=== PATIENT | male | born 1995 | race Caucasian/White ===

== ENCOUNTER 2018-03-06 15:04 | Emergency (ER) | payer OTHER, BC ==
--- NOTE | 2018-03-06 15:36 | EDM.PDOC ---
ED HPI GENERAL MEDICAL PROBLEM - General Chief Complaint: Lower Extremity Injury/Pain Stated Complaint: right knee pain Time Seen by Provider: 03/06/18 15:06 Source of Information: Reports: Patient History Limitations: Reports: No Limitations - History of Present Illness INITIAL COMMENTS - FREE TEXT/NARRATIVE: Patient comes in with complaints of right knee pain after twisting it while at work. He does have swelling and pain. He also states he heard and felt a pop. He has no other complaints and did not fall. Onset: Today, Sudden Duration: Getting Worse Location: Reports: Lower Extremity, Right Quality: Reports: Ache Severity: Moderate Improves with: Reports: None Worsens with: Reports: Movement Associated Symptoms: Reports: No Other Symptoms Right Knee Pain Score (Numeric/FACES): 2 - Related Data Allergies Allergy/AdvReac Type Severity Reaction Status Date / Time No Known Allergies Allergy Verified 03/06/18 15:28 Home Meds: Home Meds . [No Known Home Meds] 03/06/18 [History] Review of Systems - Review of Systems Review Of Systems: See Below Constitutional: Reports: No Symptoms Eyes: Reports: No Symptoms Ears: Reports: No Symptoms Nose: Reports: No Symptoms Mouth/Throat: Reports: No Symptoms Respiratory: Reports: No Symptoms Cardiovascular: Reports: No Symptoms GI/Abdominal: Reports: No Symptoms Genitourinary: Reports: No Symptoms Musculoskeletal: Reports: Other (right knee pain and swelling) Skin: Reports: No Symptoms Neurological: Reports: No Symptoms Psychiatric: Reports: No Symptoms ED EXAM, GENERAL - Physical Exam Exam: See Below Exam Limited By: No Limitations General Appearance: Alert, WD/WN, No Apparent Distress Eye Exam: Bilateral Eye: EOMI, PERRL Ears: Normal TMs Throat/Mouth: Normal Inspection, Normal Lips, Normal Teeth, Normal Gums, Normal Oropharynx, Normal Voice, No Airway Compromise Head: Atraumatic, Normocephalic Neck: Normal Inspection, Supple, Non-Tender, Full Range of Motion Respiratory/Chest: No Respiratory Distress, Lungs Clear, Normal Breath Sounds, No Accessory Muscle Use, Chest Non-Tender Cardiovascular: Normal Peripheral Pulses, Regular Rate, Rhythm, No Edema, No Gallop, No JVD, No Murmur, No Rub Peripheral Pulses: 2+: Popliteal (L), Popliteal (R), Posterior Tibial (L), Posterior Tibial (R), Dorsalis Pedis (L), Dorsalis Pedis (R) GI/Abdominal: Normal Bowel Sounds, Soft, Non-Tender, No Organomegaly, No Distention, No Abnormal Bruit, No Mass Extremities: Non-Tender, No Pedal Edema, Normal Capillary Refill, Joint Swelling (right knee has medial swelling, varus and valgus maneuvers positive for pain. Medial more than lateral) Neurological: Alert, Oriented, CN II-XII Intact, Normal Cognition, Normal Gait, Normal Reflexes, No Motor/Sensory Deficits Psychiatric: Normal Affect, Normal Mood Skin Exam: Warm, Dry, Intact, Normal Color, No Rash Lymphatic: No Adenopathy Course - Vital Signs Last Recorded V/S: Last Vital Signs Temp 36.0 C 03/06/18 15:10 Pulse 73 03/06/18 15:10 Resp 16 03/06/18 15:10 BP 138/76 03/06/18 15:10 Pulse Ox 98 03/06/18 15:10 - Orders/Labs/Meds Orders: Active Orders 24 hr Category Date Time Status Knee 3V Rt [CR] Stat Exams 03/06/18 15:07 Taken Departure - Departure Time of Disposition: 15:37 Disposition: Home, Self-Care 01 Condition: Good Clinical Impression: Sprain of right knee Qualifiers: Encounter type: initial encounter Involved ligament of knee: unspecified ligament Qualified Code(s): S83.91XA - Sprain of unspecified site of right knee , initial encounter - Discharge Information *PRESCRIPTION DRUG MONITORING PROGRAM REVIEWED*: Not Applicable *COPY OF PRESCRIPTION DRUG MONITORING REPORT IN PATIENT FELICE: Not Applicable Instructions: Knee Sprain, Adult, [id number] Referrals: PCP,Not In Area [Primary Care Provider] - Forms: ED Department Discharge Additional Instructions: Please follow up with a primary doctor this week. I did write a prescription for an MRI as the x-ray does appear to be negative, but you should have an evaluation for any ligament or cartilage damage. I will call you if the radiologist sees a fracture that I did not. I recommend that you do not work this week and schedule the above appointments. Elevate your leg, ice it for 30 minutes on. Do not apply ice directly to the skin. Wait for 30-60 minutes and apply again. Take tylenol and ibuprofen for pain. If you have any questions or concerns please call us. - Problem List & Annotations (1) Sprain of right knee SNOMED Code(s): 99334662 Code(s): S83.91XA - SPRAIN OF UNSPECIFIED SITE OF RIGHT KNEE, INITIAL ENCOUNTER Status: Acute Priority: Low Qualifiers: Encounter type: initial encounter Involved ligament of knee: unspecified ligament Qualified Code(s): S83.91XA - Sprain of unspecified site of right knee, initial encounter - My Orders Last 24 Hours: My Active Orders 03/06/18 15:07 Knee 3V Rt [CR] Stat - Assessment/Plan Last 24 Hours: My Active Orders 03/06/18 15:07 Knee 3V Rt [CR] Stat Assessment:: right knee sprain Plan: Please follow up with a primary doctor this week. I did write a prescription for an MRI as the x-ray does appear to be negative, but you should have an evaluation for any ligament or cartilage damage. I will call you if the radiologist sees a fracture that I did not. I recommend that you do not work this week and schedule the above appointments. Elevate your leg, ice it for 30 minutes on. Do not apply ice directly to the skin. Wait for 30-60 minutes and apply again. Take tylenol and ibuprofen for pain. If you have any questions or concerns please call us.
== END 2018-03-06 15:45 | disposition home or self-care (01) ==
LOC: VM.ED 15:04
DX: S83.91XA Sprain of unspecified site of right knee, initial encounter (principal); X50.1XXA Overexertion from prolonged static or awkward postures, initial encounter; Y99.0 Civilian activity done for income or pay
CPT/HCPCS: 73562-RT; 99283